=== PATIENT | male | born 1945 | race Hispanic/Latino ===

== ENCOUNTER 2018-06-06 15:15 | Inpatient (IN) | payer MEDICARE ==
[2018-06-06 15:15] VITALS: BMI 23.5
--- NOTE | 2018-06-06 15:41 | ED PDOC ---
Arrival/HPI - General Historian: Patient, Family (daughter) - History of Present Illness Narrative History of Present Illness (Text): 06/06/18 15:41 72M with a pmhx of perforated intestinal ulcer (location unclear) in the , hypothyroidism, medication non-compliance presents to the Emergency department with a month long history of weakness and fatigue. Pt says he has not taken his synthroid or seen his PMD in 2 years. He also began to get arm weakness. Pt states he wants to get better and start taking his synthroid again. ROS: Pos+ weakness, fatigue, gait instability, frequent falls, cognitive decline Neg- chest pain, shortness of breath, F/C/N/V, weight changes, blood in stools/urine, numbness, hair changes, mood changes, 06/06/18 16:10 Daughter Kat at bedside requesting to be point of contact [phone] Time/Duration: > month Symptom Course: Worsening Quality: Other (weakness) Activities at Onset: Light <Reddy Preciado - Last Filed: 06/06/18 19:21> <Tej Sen - Last Filed: 06/07/18 15:48> - General Chief Complaint: Weakness/Neurological Deficit Time Seen by Provider: 06/06/18 15:24 Past Medical History - Provider Review Nursing Documentation Reviewed: Yes - Tetanus Immunization Tetanus Immunization: Unknown - Cardiac Hx Pacemaker: No - Neurological Hx Neurological Disorder: Yes Hx Dementia: Yes (? DEMENTIA- FORGETFUL) - Renal Hx Renal Disorder: Yes Hx Kidney Stones: Yes (LITHOTRYPSY) - Endocrine/Metabolic Hx Endocrine Disorders: Yes Hx Hypothyroidism: Yes - Hematological/Oncological Hx Blood Disorders: Yes Hx Anemia: Yes - Integumentary Hx Dermatological Disorder: Yes (PLETHORA OF DRY SKIN SPECIALLY TO FEET,GENERALIZED SKIN DRYNESS TO UPPER,LE) - Musculoskeletal/Rheumatological Hx Musculoskeletal Disorders: Yes Hx Falls: Yes - Gastrointestinal Hx Gastrointestinal Disorders: Yes (DEHYDRATION,COLOSTOMY REVERSAL,FECAL IMPACTION) Hx Colostomy: Yes (with reversal) - Genitourinary/Gynecological Hx Genitourinary Disorders: Yes Hx Incontinence: Yes - Psychiatric Hx Psychophysiologic Disorder: (pt denies) Hx Anxiety: No Hx Emotional Abuse: No Hx Physical Abuse: No Hx Substance Use: No - Surgical History Hx Tonsillectomy: Yes - Anesthesia Hx Anesthesia: Yes Hx Anesthesia Reactions: No Hx Malignant Hyperthermia: No - Suicidal Assessment Feels Threatened In Home Enviroment: No <OzzyLuisReddy - Last Filed: 06/06/18 19:21> Family/Social History - Physician Review Nursing Documentation Reviewed: Yes Family/Social History: Unknown Family HX Smoking Status: Never Smoked Hx Alcohol Use: Yes (ETOH USE,BEER WHISKEY H/O) Hx Substance Use: No Hx Substance Use Treatment: No <Reddy Preciado - Last Filed: 06/06/18 19:21> Allergies/Home Meds <Reddy Preciado - Last Filed: 06/06/18 19:21> <Tej Sen - Last Filed: 06/07/18 15:48> Allergies/Adverse Reactions: Allergies No Known Allergies Allergy (Verified 10/28/14 00:01) Review of Systems - Physician Review All systems were reviewed & negative as marked: Yes - Review of Systems Constitutional: Fatigue. absent: Weight Change, Fevers Eyes: absent: Vision Changes ENT: absent: Hearing Changes Respiratory: absent: SOB, Cough Cardiovascular: absent: Chest Pain, Syncope Gastrointestinal: Constipation, Diarrhea. absent: Abdominal Pain, Vomiting Genitourinary Male: absent: Dysuria Musculoskeletal: absent: Back Pain, Neck Pain Neurological: Gait Changes (falls). absent: Headache, Dizziness Psychiatric: Other (cognitive decline) <Reddy Preciado - Last Filed: 06/06/18 19:21> Physical Exam Vital Signs Reviewed: Yes Vital Signs Pulse Resp BP Pulse Ox 06/06/18 15:16 62 18 117/77 95 Blood Pressure: Normal Pulse: Regular Respiratory Rate: Normal Appearance: Positive for: Non-Toxic Mental Status: Positive for: Alert and Oriented X 3 - Systems Exam Head: Present: Atraumatic, Normocephalic Pupils: Present: PERRL Extroacular Muscles: Present: EOMI, Other (periorbital swelling). No: Gaze Palsy Conjunctiva: Present: Normal Mouth: Present: Moist Mucous Membranes Neck: Present: Normal Range of Motion Respiratory/Chest: Present: Clear to Auscultation. No: Wheezes, Rhonchi Cardiovascular: Present: Regular Rate and Rhythm, Normal S1, S2. No: Murmurs Abdomen: No: Tenderness, Distention Upper Extremity: Present: Normal Inspection, Other (L arm weakness, muscle strength 4/5). No: Cyanosis, Edema Lower Extremity: Present: Normal Inspection, NORMAL PULSES Neurological: Present: GCS=15, CN II-XII Intact Psychiatric: Present: Alert, Oriented x 3 <Reddy Preciaod - Last Filed: 06/06/18 19:21> Vital Signs Temp Pulse Resp BP Pulse Ox 06/06/18 15:17 94.3 F L 06/06/18 15:16 62 18 117/77 95 <FrancyTej - Last Filed: 06/07/18 15:48> Medical Decision Making ED Course and Treatment: 06/06/18 17:38 CBC,CMP, T4 T3, TSH, CT head and neck no cont, Chest X-ray, Trops f/u results 06/06/18 17:39 - EKG Interpretation EKG Interpretation (Text): 06/06/18 15:41 62, RBB, no stemi <Reddy Preciado - Last Filed: 06/06/18 19:21> ED Course and Treatment: 06/06/18 19:14 Pt in NAD, GCS15 at this time. Stable neuro exam. David Rivers on. Ruslan at 57 but asymptomatic. appreciate consult w/ Dr. Mina Berg: we are to admit to his service, give 50 mcg levothyroxine. I endorsed need for Repeat CT scan in 6 hours as recc by RADS. Page sent out to Dr. Smith (NSX). 191 Appreciate consult w/ Dr. Smith, No indication for acute intervention at this time. May repeat CT as needed. 06/06/18 19:20 Patient Seen with Resident: In agreement with resident note which contains more details about the patient. Patient seen and evaluated with resident. Came up with plan and treatment together. Impression: 72 year old male who presents to the emergency department complaining of generalized weakness. Hypothryoid per labs. Mild ruslan, Hypothermic however with good mentation, stable pressures and GCS 15. Consulted w/ PMD Dr. Manuel requesting tele admit and 50mcg PO synthroid- pt agreeable. Admitted in NAD ,agreeable to plan. - Lab Interpretations Lab Results: 06/06/18 16:50 Lab Results 06/06/18 16:50: pO2 41, VBG pH 7.33, VBG pCO2 49.0, VBG HCO3 25.8, VBG Total CO2 27.3, VBG O2 Sat (Calc) 78.3 H, VBG Base Excess -0.7 L, VBG Potassium 5.1, Sodium 135.0, Chloride 100.0, Glucose 88, Lactate 1.7, FiO2 21.0, Venous Blood Potassium 5.1 06/06/18 16:50: WBC 9.1, RBC 3.73, Hgb 12.3 L, Hct 36.9 L, MCV 98.9, MCH 33.0, MCHC 33.3, RDW 13.6, Plt Count 163, MPV 10.4, Gran % 82.8 H, Lymph % (Auto) 12.4 L, [place] % (Auto) 4.3, Eos % (Auto) 0.3 L, Baso % (Auto) 0.2, Gran # 7.55 H, Lymph # (Auto) 1.1 L, [place] # (Auto) 0.4, Eos # (Auto) 0.0, Baso # (Auto) 0.02 - RAD Interpretation Radiology Orders: 06/06/18 15:44 HEAD W/O CONTRAST [CT] Stat CHEST PORTABLE [RAD] Stat 06/06/18 16:22 CERVICAL SPINE W/O CONTRAST [CT] Stat <Tej Sen - Last Filed: 06/07/18 15:48> - PA / [employer] / Resident Statement / has examined the patient and agrees with the treatment plan. (72 yr old male w/ hx of hypothyroid n/c w/ meds p/w hypothyrodisim. Elevated TSH and low T3 / T4 on labs. Presures stable, Resp normal, protecting airway well w/ GCS 15. given 50mgc synthroid po and admitted to dr. diaz service in [facility].) - Scribe Statement The provider has reviewed the documentation as recorded by the Zoraibcolette Sage Provider Scribe Attestation: All medical record entries made by the Scribe were at my direction and personally dictated by me. I have reviewed the chart and agree that the record accurately reflects my personal performance of the history, physical exam, medical decision making, and the department course for this patient. I have also personally directed, reviewed, and agree with the discharge instructions and disposition. <Tej Sen - Last Filed: 06/07/18 15:48> Disposition/Present on Arrival - Present on Arrival History of DVT/PE: No History of Uncontrolled Diabetes: No Urinary Catheter: No History of Decub. Ulcer: No History Surgical Site Infection Following: None - Disposition Have Diagnosis and Disposition been Completed?: Yes Patient Plan: Admission <Reddy Preciado - Last Filed: 06/06/18 19:21> - Present on Arrival Any Indicators Present on Arrival: No - Disposition Have Diagnosis and Disposition been Completed?: Yes Disposition Time: 19:19 <Tej Sen - Last Filed: 06/07/18 15:48> - Disposition Diagnosis: Hypothyroid Disposition: HOSPITALIZED Patient Problems: Current Active Problems Problem Status Onset Hypothyroid Acute Condition: GOOD
[2018-06-06 17:04] LABS: VENOUS BLOOD GAS BASE EXCESS -0.7 mmol/L (0.0-2.0); VENOUS BLOOD GAS PO2 41 mm/Hg (30-55); VENOUS BLOOD PH 7.33 (7.32-7.43)
[2018-06-06 17:21] LABS: BASO # 0.02 K/mm3 (0.0-2.0); BASO % 0.2 % (0.0-3.0); EOS % 0.3 % (1.5-5.0); GRAN # 7.55 (1.4-6.5); GRAN % 82.8 % (50.0-68.0); HEMOGLOBIN 12.3 g/dL (14.0-18.0); LYMPH # 1.1 (1.2-3.4); LYMPH % 12.4 % (22.0-35.0); MEAN CELL VOLUME 98.9 fl (80.0-105.0); MEAN CORPUSCULAR HGB CONC 33.3 g/dl (31.0-37.0); MEAN PLATELET VOLUME 10.4 fl (7.0-11.0); MONO # 0.4 (0.1-0.6); MONO % 4.3 % (1.0-6.0); RBC 3.73 10^6/uL (3.5-6.1); RED CELL DISTRIBUTION WIDTH 13.6 % (11.5-14.5); WHITE BLOOD COUNT 9.1 10^3/uL (4.5-11.0)
[2018-06-06 17:44] LABS: ALB/GLOB RATIO 1.2 (1.1-1.8); ALBUMIN 4.7 g/dL (3.0-4.8); CALCIUM 9.8 mg/dL (8.4-10.5)
[2018-06-06 17:55] LABS: TROPONIN I 0.02 ng/mL
[2018-06-06 18:02] LABS: T4 0.4 ug/dL (5.5-11.0)
[2018-06-06 18:15] LABS: T3 0.21 ng/mL (0.97-1.69)
[2018-06-06] MEDS ORDERED: Levothyroxine 50 MCG TAB PO STA (19:09)
--- NOTE | 2018-06-06 19:11 | CT ---
Date of service: 06/06/2018 PROCEDURE: CT HEAD WITHOUT CONTRAST. HISTORY: weak COMPARISON: Noncontrast head CT performed 10/27/14 TECHNIQUE: Axial computed tomography images were obtained through the head/brain without intravenous contrast. Radiation dose: Total exam DLP = 1149.49 mGy-cm. This CT exam was performed using one or more of the following dose reduction techniques: Automated exposure control, adjustment of the mA and/or kV according to patient size, and/or use of iterative reconstruction technique. FINDINGS: HEMORRHAGE: Question small approximately 3 mm in depth frontal convexity subdural hematoma (series 4, image 19). BRAIN: Diffuse atrophy with prominence of the ventricles and sulci noted. No mass effect or edema. Scattered periventricular and subcortical white matter hypodensities, which are nonspecific, but often seen with chronic microvascular ischemic disease. Please note that MRI with diffusion imaging is more sensitive in the detection of acute ischemic event. VENTRICLES: No hydrocephalus. CALVARIUM: Unremarkable. PARANASAL SINUSES: Increased attenuation of the left maxillary sinus contents may indicate proteinaceous material or fungal colonization. MASTOID AIR CELLS: Unremarkable as visualized. No inflammatory changes. OTHER FINDINGS: Partial opacification bilateral external auditory canals, likely cerumen. IMPRESSION: Question 3 mm small frontal convexity subdural hematoma. Recommend MRI for further evaluation or repeat head CT in 6 hr. Generalized atrophy. Nonspecific white matter changes. Increased attenuation of the left maxillary sinus contents may indicate proteinaceous material or fungal colonization. Findings discussed with Dr. Rodriguez on 06/06/18 at 7:05 p.m.
[2018-06-07] MEDS ORDERED: Sodium Chloride 0.9% 1,000 ML IV STA ×2 (05:02→06:20)
[2018-06-07 05:55] LABS: BASO # 0.03 K/mm3 (0.0-2.0); BASO % 0.5 % (0.0-3.0); EOS % 0.5 % (1.5-5.0); GRAN # 4.57 (1.4-6.5); GRAN % 71.5 % (50.0-68.0); LYMPH # 1.5 (1.2-3.4); LYMPH % 22.8 % (22.0-35.0); MEAN CELL VOLUME 98.6 fl (80.0-105.0); MEAN CORPUSCULAR HEMOGLOBIN 32.5 pg (25.0-35.0); MEAN PLATELET VOLUME 9.1 fl (7.0-11.0); MONO # 0.3 (0.1-0.6); MONO % 4.7 % (1.0-6.0); RBC 2.92 10^6/uL (3.5-6.1); RED CELL DISTRIBUTION WIDTH 13.7 % (11.5-14.5); WHITE BLOOD COUNT 6.4 10^3/uL (4.5-11.0)
[2018-06-07 06:25] LABS: PH,URINE 8.5 (4.7-8.0); URINE BILIRUBIN NEGATIVE (NEGATIVE); URINE BLOOD TRACE-INTACT (NEGATIVE); URINE GLUCOSE (UA) NEGATIVE (NEGATIVE); URINE LEUKOCYTE ESTERASE MODERATE Leu/uL (NEGATIVE); URINE PROTEIN TRACE mg/dL (<30 mg/dL); URINE UROBILINOGEN 0.2 E.U./dL (<1 E.U./dL)
[2018-06-07 06:27] LABS: HEMOGLOBIN 9.5 g/dL (14.0-18.0)
[2018-06-07 06:27] LABS: URINE APPEARANCE CLOUDY (CLEAR); URINE COLOR YELLOW (YELLOW)
[2018-06-07 06:39] LABS: URINE BACTERIA MANY /hpf; URINE EPITHELIAL CELLS 0 - 2 /hpf (0-5); URINE RBC 0 - 2 /hpf (0-2)
[2018-06-07 06:42] LABS: ALB/GLOB RATIO 1.1 (1.1-1.8); ALBUMIN 3.6 g/dL (3.0-4.8); CALCIUM 8.8 mg/dL (8.4-10.5)
--- NOTE | 2018-06-07 07:26 | CT ---
Date of service: 06/06/2018 PROCEDURE: CT Cervical Spine without contrast HISTORY: dementia, frequent falls COMPARISON: None available. TECHNIQUE: Axial computed tomography images were obtained of the cervical spine without the use of intravenous contrast. Coronal and sagittal reformatted images were created and reviewed. Radiation dose: Total exam DLP = 452.93 mGy-cm. This CT exam was performed using one or more of the following dose reduction techniques: Automated exposure control, adjustment of the mA and/or kV according to patient size, and/or use of iterative reconstruction technique. FINDINGS: VERTEBRAE: No fracture. No destructive bony lesion. There is a grade 1 5 millimeter anterior spondylolisthesis of C3 on C4 and C4 on C5 noted. DISCS/SPINAL CANAL/NEURAL FORAMINA: Moderate to severe spondylosis noted associated with multilevel facet joint arthritis and multilevel anterior and posterior osteophyte formation there is moderate narrowing of the intervertebral disc at C6-C7 associated with endplate degenerative changes and osteophyte formation. PARASPINAL SOFT TISSUES: Unremarkable. OTHER FINDINGS: None. IMPRESSION: No definite CT evidence of acute displaced fracture. Moderate to severe spondylosis. Grade 1 approximately 5 millimeter anterior spondylolisthesis of C3 on C4 and C4 on C5 noted. Multilevel posterior osteophyte bulging disc complex associated with mild spinal and neural foraminal narrowing. Preliminary report was submitted by [facility] Radiology contains concordant findings.
--- NOTE | 2018-06-07 08:23 | CP.PCM.PN ---
Subjective - Date & Time of Evaluation Date of Evaluation: 06/07/18 Time of Evaluation: 08:22 - Subjective Subjective: called by ER regarding CT report "question subdural hematoma 3mm in depth frontal area seen series 4 cut 19" As general rule small area of patiology seen on only on one CT cut of a head ct is artifact and not significant. In this case this is a nonsignificant finding No tx is required Objective - Vital Signs/Intake and Output Vital Signs (last 24 hours): Temp Pulse Resp BP Pulse Ox 96.7 F L 68 19 92/61 L 96 06/07/18 00:01 06/07/18 02:00 06/07/18 00:01 06/07/18 00:01 06/06/18 22:00 Intake and Output: 06/07/18 06/07/18 06:59 18:59 Intake Total 0 Output Total 0 Balance 0 - Medications Medications: Current Medications Acetaminophen (Tylenol 325mg Tab) 650 mg PO Q6H PRN PRN Reason: Fever >100.4 F Levothyroxine Sodium (Synthroid) 100 mcg PO ACB DELTA - Labs Labs: 06/07/18 05:20 06/07/18 05:20
[2018-06-07] MEDS: Levothyroxine 100 MCG TAB PO SCH (08:25)
--- NOTE | 2018-06-07 09:10 | CARD ---
APPROVED REPORT Date of service: 06/06/2018 EKG Measurement Heart [id number] <Conclusion> Normal sinus rhythm Right bundle branch block NSSTW changes
--- NOTE | 2018-06-07 09:37 | RAD ---
Date of service: 06/06/2018 PROCEDURE: CHEST RADIOGRAPH, 1 VIEW HISTORY: weak COMPARISON: 10/29/2014 FINDINGS: LUNGS: Minimal linear atelectasis at the left base. The lungs are otherwise clear PLEURA: No pneumothorax or pleural fluid seen. CARDIOVASCULAR: No aortic atherosclerotic calcification present. Normal. OSSEOUS STRUCTURES: No significant abnormalities. VISUALIZED UPPER ABDOMEN: Normal. OTHER FINDINGS: None. IMPRESSION: No active disease.
[2018-06-07] MEDS: Dextrose 5%/0.45% NS 1,000 ML IV SCH ×2 (11:00→23:17)
--- NOTE | 2018-06-07 11:28 | HP ---
DATE OF EXAM: 06/07/2018 CHIEF COMPLAINT: Weak, dizzy, hypothermic, hypotensive, not taking thyroid medicines for over 4 years. HISTORY OF PRESENT ILLNESS: This is frustratingly noncompliant 72-year-old patient I had known, I first met many years ago. He has a history of stopping the medications and extracting himself from all medical followup. This had been done in the past when he was seen approximately 4 years ago and apparently after taking his Synthroid only few months and being lost to followup, he again stopped taking his medications. He came to the office with family and friends, was seen by Dr. Jason Horne. His skin was cold. He was obviously profoundly hypothyroid with a deep raspy voice, dry skin, manuel hair, and sent to the emergency room. In the ER, his temp was 94.3, his blood pressure was 117/77. His TSH was over 300 and he was given some p.r.n. levothyroxine and arrangements were made for him to be admitted. PAST MEDICAL HISTORY: Significant for perforated ulcer in 1993, hypothyroidism and few hospitalizations related to noncompliance with medications and profound hypothyroidism. CURRENT MEDICATIONS: At home, he takes non oral Synthroid that has been prescribed. ALLERGIES: HE IS NOT ALLERGIC TO ANY MEDICINES. SOCIAL HISTORY: Does not smoke, never did. Does not drink alcohol. He is . FAMILY HISTORY: Otherwise noncontributory. PHYSICAL EXAMINATION: GENERAL: A 72-year-old man with deep harsh voice, white complexion, seen in the emergency room holding area, waiting for admission. HEAD AND NECK: Her skin was pale. Conjunctivae were pink. Mucous membranes were dry. NECK: Supple without masses. No JVD. No bruits. HEART: Regular, not tachycardic. LUNGS: Clear. ABDOMEN: Soft. EXTREMITIES: Show no edema. SKIN: Pale and doughy consistency. Dry with flaking. IMPRESSION: 1. Profound hypothyroidism with hypothermia and initial hypotension. 2. Noncompliance with medications. 3. History of perforated ulcer. PLAN: The patient will be admitted to the medical floor, IV hydration, thyroid supplementations, warming blanket until temperature and vitals are stabilized. IV fluids. Follow closely. Lakhwinder Horne MD [facility] # [id number]
--- NOTE | 2018-06-07 11:57 | CP.PCM.PCO ---
Physician Communication Note - Physician Communication Note Physician Communication Note: severe hypothyroidism continue synthroid as per MAR
--- NOTE | 2018-06-07 11:57 | CP.PCM.PCO ---
Physician Communication Note - Physician Communication Note Physician Communication Note: MRI brain pending, Urine culture and sensitivites pending, Rocephin initate
[2018-06-07] MEDS: cefTRIAXone 1 gm 1 GM/100 ML BAG IVPB SCH (12:38)
--- NOTE | 2018-06-07 14:05 | MRI ---
Date of service: 06/07/2018 PROCEDURE: MRI BRAIN WITHOUT CONTRAST HISTORY: f/u on questioned CT report finding COMPARISON: CT of the head 06/06/2018 TECHNIQUE: Multiplanar, multisequence MR images of the brain were obtained without intravenous contrast enhancement. FINDINGS: HEMORRHAGE: There is no evidence of subdural hematoma. There is minimal meningeal thickening in the left frontal lobe which may be the result of a previous injury. This corresponds to the CT findings DWI: No evidence of an acute or early subacute infarction. BRAIN PARENCHYMA: No mass effect or edema. Mild chronic microvascular changes. VENTRICLES: Unremarkable. No hydrocephalus. CRANIUM: Unremarkable. ORBITS: Grossly unremarkable. PARANASAL SINUSES/MASTOIDS: Clear VASCULAR SYSTEM: Skull base flow voids intact. OTHER FINDINGS: None. IMPRESSION: No acute intracranial findings
--- NOTE | 2018-06-07 16:15 | CP.PCM.CON ---
History of Present Illness - History of Present Illness History of Present Illness: 72 y/o male admitted to [facility] [place] with lethargy and hypothyroidism exacerbation. Pt has hx of noncompliance with medications and had been progressively lethargic. Otolaryngology has been asked to see the patient for hoarseness. Pt is a poor historian. He does not feel he has hoarseness or dysphagia. Pt does attest to cough. PMHX significant for perforated ulcer and hypothyroid noncompliant with meds Review of Systems - Constitutional Constitutional: As Per HPI - EENT Eyes: As Per HPI Ears: As Per HPI Nose/Mouth/Throat: As Per HPI - Cardiovascular Cardiovascular: As Per HPI - Respiratory Respiratory: As Per HPI - Gastrointestinal Gastrointestinal: As Per HPI - Genitourinary Genitourinary: As Per HPI - Reproductive: Male Reproductive:Male: As Per HPI - Musculoskeletal Musculoskeletal: As Per HPI - Integumentary Integumentary: As Per HPI - Neurological Neurological: As Per HPI - Psychiatric Psychiatric: As Per HPI - Endocrine Endocrine: As Per HPI - Hematologic/Lymphatic Hematologic: As Per HPI Past Patient History - Tetanus Immunizations Tetanus Immunization: Unknown - Past Social History Smoking Status: denies - CARDIAC Hx Pacemaker: No - NEUROLOGICAL Hx Neurological Disorder: Yes Hx Dementia: Yes (? DEMENTIA- FORGETFUL) - RENAL Hx Chronic Kidney Disease: Yes Hx Kidney Stones: Yes (LITHOTRYPSY) - ENDOCRINE/METABOLIC Hx Hypothyroidism: Yes - HEMATOLOGICAL/ONCOLOGICAL Hx Blood Disorders: Yes Hx Anemia: Yes - INTEGUMENTARY Hx Dermatological Problems: Yes (PLETHORA OF DRY SKIN SPECIALLY TO FEET,GENERALIZED SKIN DRYNESS TO UPPER,LE) - MUSCULOSKELETAL/RHEUMATOLOGICAL Hx Falls: Yes (due to weakness) - GASTROINTESTINAL Hx Gastrointestinal Disorders: Yes (DEHYDRATION,COLOSTOMY REVERSAL,FECAL IMPACTION) Hx Colostomy: Yes (with reversal) - GENITOURINARY/GYNECOLOGICAL Hx Genitourinary Disorders: Yes Hx Incontinence: Yes - PSYCHIATRIC Hx Psychophysiologic Disorder: (pt denies) Hx Anxiety: No Hx Emotional Abuse: No Hx Physical Abuse: No - SURGICAL HISTORY Hx Surgeries: Yes (HEMICOLECTOMY,COLOSTOMY 06/30) - ANESTHESIA Hx Anesthesia: Yes Hx Anesthesia Reactions: No Hx Malignant Hyperthermia: No Meds Allergies/Adverse Reactions: Allergies Allergy/AdvReac Type Severity Reaction Status Date / Time No Known Allergies Allergy Verified 10/28/14 00:01 - Medications Medications: Current Medications Acetaminophen (Tylenol 325mg Tab) 650 mg PO Q6H PRN PRN Reason: Fever >100.4 F Dextrose/Sodium Chloride (Dextrose 5%/0.45% Ns 1000 Ml) 1,000 mls @ 100 mls/hr IV .Q10H DELTA Last Admin: 06/07/18 11:00 Dose: 100 mls/hr Ceftriaxone Sodium (Rocephin 1 Gram Ivpb) 1 gm in 100 mls @ 100 mls/hr IVPB DAILY DELTA; Protocol Last Admin: 06/07/18 12:38 Dose: 100 mls/hr Levothyroxine Sodium (Synthroid) 100 mcg PO ACB DELTA Last Admin: 06/07/18 08:25 Dose: 100 mcg Physical Exam - Head Exam Head Exam: ATRAUMATIC, NORMAL INSPECTION, NORMOCEPHALIC - Eye Exam Eye Exam: EOMI Pupil Exam: NORMAL ACCOMODATION - ENT Exam ENT Exam: Mucous Membranes Moist Additional comments: Ears: cerumen bilaterally Nose: wnl clear non boggy Throat: MMM no lesions or erythema Neck supple no adenopathy Procedure: Fiberoptic laryngoscopy performed. Anatomy not visualized with mirror therefore fiberoptic exam indicated. afrin/lidocaine placed rt nares. Scope advanced through nose to supraglottis. No lesions or masses noted in larynx. Vocal cord motion wnl bilaterally. mild interarytenoid edema. pt tolerated the procedure well. - Neck Exam Neck exam: Positive for: Normal Inspection - Respiratory Exam Respiratory Exam: Rhonchi Results - Vital Signs Recent Vital Signs: Last Vital Signs Temp 97.7 F 06/07/18 11:51 Pulse 63 06/07/18 11:51 Resp 18 06/07/18 11:51 BP 123/74 06/07/18 11:51 Pulse Ox 97 06/07/18 08:00 - Labs Result Diagrams: 06/07/18 05:20 06/07/18 05:20 Labs: Laboratory Results - last 24 hr 06/06/18 06/06/18 06/06/18 16:50 16:50 17:28 WBC 9.1 RBC 3.73 Hgb 12.3 L Hct 36.9 L MCV 98.9 MCH 33.0 MCHC 33.3 RDW 13.6 Plt Count 163 MPV 10.4 Gran % 82.8 H Lymph % (Auto) 12.4 L [place] % (Auto) 4.3 Eos % (Auto) 0.3 L Baso % (Auto) 0.2 Gran # 7.55 H Lymph # (Auto) 1.1 L [place] # (Auto) 0.4 Eos # (Auto) 0.0 Baso # (Auto) 0.02 pO2 41 VBG pH 7.33 VBG pCO2 49.0 VBG HCO3 25.8 VBG Total CO2 27.3 VBG O2 Sat (Calc) 78.3 H VBG Base Excess -0.7 L VBG Potassium 5.1 Sodium 135.0 135 Chloride 100.0 100 Glucose 88 Lactate 1.7 FiO2 21.0 Potassium 4.0 Carbon Dioxide 24 Anion Gap 15 BUN 33 H Creatinine 1.9 H Est GFR ( Amer) 43 Est GFR (Non-Af Amer) 35 Random Glucose 93 Lactic Acid Calcium 9.8 Total Bilirubin 0.6 AST 81 H ALT 58 H Alkaline Phosphatase 68 Troponin I 0.02 D Total Protein 8.6 H Albumin 4.7 Globulin 3.9 Albumin/Globulin Ratio 1.2 Thyroxine (T4) Total T3 TSH 3rd Generation Venous Blood Potassium 5.1 Urine Color Urine Appearance Urine pH Ur Specific [place] Urine Protein Urine Glucose (UA) Urine Ketones Urine Blood Urine Nitrate Urine Bilirubin Urine Urobilinogen Ur Leukocyte Esterase Urine RBC Urine WBC Ur Epithelial Cells Urine Bacteria Blood Type Antibody Screen BBK History Checked 06/06/18 06/06/18 06/07/18 17:28 17:30 05:20 WBC 6.4 D RBC 2.92 L Hgb 9.5 L D Hct 28.8 L MCV 98.6 MCH 32.5 MCHC 33.0 RDW 13.7 Plt Count 147 MPV 9.1 Gran % 71.5 H Lymph % (Auto) 22.8 [place] % (Auto) 4.7 Eos % (Auto) 0.5 L Baso % (Auto) 0.5 Gran # 4.57 Lymph # (Auto) 1.5 [place] # (Auto) 0.3 Eos # (Auto) 0.0 Baso # (Auto) 0.03 pO2 VBG pH VBG pCO2 VBG HCO3 VBG Total CO2 VBG O2 Sat (Calc) VBG Base Excess VBG Potassium Sodium Chloride Glucose Lactate FiO2 Potassium Carbon Dioxide Anion Gap BUN Creatinine Est GFR ( Amer) Est GFR (Non-Af Amer) Random Glucose Lactic Acid Calcium Total Bilirubin AST ALT Alkaline Phosphatase Troponin I Total Protein Albumin Globulin Albumin/Globulin Ratio Thyroxine (T4) 0.4 L Total T3 0.21 L TSH 3rd Generation 384.00 H Venous Blood Potassium Urine Color Urine Appearance Urine pH Ur Specific [place] Urine Protein Urine Glucose (UA) Urine Ketones Urine Blood Urine Nitrate Urine Bilirubin Urine Urobilinogen Ur Leukocyte Esterase Urine RBC Urine WBC Ur Epithelial Cells Urine Bacteria Blood Type B POSITIVE Antibody Screen Negative BBK History Checked Patient has bt 06/07/18 06/07/18 06/07/18 05:20 05:20 05:50 WBC RBC Hgb Hct MCV MCH MCHC RDW Plt Count MPV Gran % Lymph % (Auto) [place] % (Auto) Eos % (Auto) Baso % (Auto) Gran # Lymph # (Auto) [place] # (Auto) Eos # (Auto) Baso # (Auto) pO2 VBG pH VBG pCO2 VBG HCO3 VBG Total CO2 VBG O2 Sat (Calc) VBG Base Excess VBG Potassium Sodium 136 Chloride 104 Glucose Lactate FiO2 Potassium 3.9 Carbon Dioxide 22 Anion Gap 13 BUN 34 H Creatinine 2.5 H Est GFR ( Amer) 31 Est GFR (Non-Af Amer) 26 Random Glucose 77 Lactic Acid 1.3 Calcium 8.8 Total Bilirubin 0.6 AST 55 ALT 39 Alkaline Phosphatase 51 Troponin I Total Protein 6.7 Albumin 3.6 Globulin 3.1 Albumin/Globulin Ratio 1.1 Thyroxine (T4) Total T3 TSH 3rd Generation Venous Blood Potassium Urine Color Yellow Urine Appearance Cloudy Urine pH 8.5 Ur Specific [place] 1.010 Urine Protein Trace H Urine Glucose (UA) Negative Urine Ketones Negative Urine Blood Trace-intact H Urine Nitrate Negative Urine Bilirubin Negative Urine Urobilinogen 0.2 Ur Leukocyte Esterase Moderate H Urine RBC 0 - 2 Urine WBC 5 - 10 H Ur Epithelial Cells 0 - 2 Urine Bacteria Many Blood Type Antibody Screen BBK History Checked - Impressions Impression: Atelectasis noted on cxr Assessment & Plan (1) Hypothyroid Status: Acute (2) Dehydration Status: Acute (3) Hypokalemia Status: Acute (4) Renal insufficiency Status: Acute (5) Urinary tract infection Status: Acute (6) Oropharyngeal dysphagia Status: Acute (7) Other voice and resonance disorders Status: Acute (8) Cough Status: Acute - Assessment and Plan (Free Text) Plan: I believe the patient's problems with voice are multifactorial (hypothyroid, cough-r/o Lower respiratory tract infection/bronchitis, poor respiratory effort, debility and GERD). Continue Abx for UTI and possibility of lower respiratory tract infection/bronchitis. Speech therapy eval-bedside swallow. Follow up as out patient. - Date & Time Date: 06/07/18 Time: 16:14
--- NOTE | 2018-06-08 00:33 | PN ---
DATE: 06/07/2018 DAILY PROGRESS NOTE SUBJECTIVE: The patient was seen this Sunday morning in room 264, bed 1, lying comfortably in bed, awake, alert, and clear in rather good spirits. PHYSICAL EXAMINATION: VITAL SIGNS: Heart rate remains stable in the low 60s, his temperature madi during the night. He was given a dose of Tylenol. LABORATORY DATA: Urinalysis shows some cloudy urine, suspicious of urinary tract infection. Cultures are pending. ASSESSMENT AND PLAN: The dose of antibiotics were ordered and given. Synthroid is ordered. I also ordered for some physical therapy, currently up and out of bed. Neurosurgical opinion was appreciated regarding findings of CT scan on admission to be more artifactual . I reviewed the films myself with Dr. Lawson in the Radiology office. The patient is scheduled for an MRI. I will continue that request since he is complaining of left arm weakness. He says he feels the arm is weak yet when I test strength and respiratory care assistant and biceps and triceps as well as shoulder shrugging, all seems normal. We will look at the MRI to rule out transient ischemic attack, cerebrovascular accident or other abnormality. Otherwise, we will continue IV hydration today, continue Synthroid, consider Transitional Care for additional physical therapy versus home with reinforcement of the importance of taking his medications. Lakhwinder Horne MD
[2018-06-08] MEDS: Levothyroxine 100 MCG TAB PO SCH (08:12)
[2018-06-08 09:08] LABS: ALB/GLOB RATIO 1.1 (1.1-1.8); ALBUMIN 3.7 g/dL (3.0-4.8); BASO # 0.01 K/mm3 (0.0-2.0); BASO % 0.1 % (0.0-3.0); CALCIUM 8.9 mg/dL (8.4-10.5); EOS % 0.4 % (1.5-5.0); GRAN # 7.45 (1.4-6.5); GRAN % 78.2 % (50.0-68.0); HEMOGLOBIN 10.7 g/dL (14.0-18.0); LYMPH # 1.7 (1.2-3.4); LYMPH % 17.8 % (22.0-35.0); MEAN CELL VOLUME 99.4 fl (80.0-105.0); MEAN CORPUSCULAR HEMOGLOBIN 32.6 pg (25.0-35.0); MEAN CORPUSCULAR HGB CONC 32.8 g/dl (31.0-37.0); MEAN PLATELET VOLUME 9.5 fl (7.0-11.0); MONO # 0.3 (0.1-0.6); MONO % 3.5 % (1.0-6.0); RBC 3.28 10^6/uL (3.5-6.1); RED CELL DISTRIBUTION WIDTH 13.8 % (11.5-14.5); WHITE BLOOD COUNT 9.5 10^3/uL (4.5-11.0)
[2018-06-08 09:13] LABS: IRON 32 ug/dL (45-180)
[2018-06-08 09:23] LABS: % IRON SATURATION 11 % (20-55); TOTAL IRON BINDING CAPACITY 305 ug/dL (261-462)
[2018-06-08] MEDS: Dextrose 5%/0.45% NS 1,000 ML IV SCH ×2 (09:50→20:00)
[2018-06-08] MEDS: cefTRIAXone 1 gm 1 GM/100 ML BAG IVPB SCH (09:51)
[2018-06-08 12:15] LABS: FOLATE 3.6 ng/mL
--- NOTE | 2018-06-08 14:47 | CP.PCM.PCO ---
Physician Communication Note - Physician Communication Note Physician Communication Note: PT recommended TCU, CM/SW for D/C planning
[2018-06-08] MEDS ORDERED: Potassium Chloride 20 mEq ER Tab PO ONE (14:49)
[2018-06-09] MEDS: Dextrose 5%/0.45% NS 1,000 ML IV SCH ×3 (04:00→21:30)
[2018-06-09 06:51] LABS: ALB/GLOB RATIO 1.1 (1.1-1.8); ALBUMIN 3.4 g/dL (3.0-4.8); BASO # 0.01 K/mm3 (0.0-2.0); BASO % 0.2 % (0.0-3.0); CALCIUM 8.2 mg/dL (8.4-10.5); EOS # 0.1 (0.0-0.7); EOS % 1.3 % (1.5-5.0); GRAN # 4.41 (1.4-6.5); GRAN % 72.2 % (50.0-68.0); HEMOGLOBIN 9.1 g/dL (14.0-18.0); LYMPH # 1.3 (1.2-3.4); LYMPH % 21.5 % (22.0-35.0); MEAN CELL VOLUME 99.6 fl (80.0-105.0); MEAN CORPUSCULAR HEMOGLOBIN 32.7 pg (25.0-35.0); MEAN CORPUSCULAR HGB CONC 32.9 g/dl (31.0-37.0); MEAN PLATELET VOLUME 9.2 fl (7.0-11.0); MONO # 0.3 (0.1-0.6); MONO % 4.8 % (1.0-6.0); RBC 2.78 10^6/uL (3.5-6.1); RED CELL DISTRIBUTION WIDTH 13.6 % (11.5-14.5); WHITE BLOOD COUNT 6.1 10^3/uL (4.5-11.0)
[2018-06-09] MEDS: Levothyroxine 100 MCG TAB PO SCH (08:42)
[2018-06-09] MEDS: cefTRIAXone 1 gm 1 GM/100 ML BAG IVPB SCH (09:06)
[2018-06-09] MEDS ORDERED: Levothyroxine 150 MCG TAB PO SCH (11:31)
--- NOTE | 2018-06-09 17:04 | PN ---
DATE: 06/08/2018 SUBJECTIVE: The patient is a 72-year-old male whom I have known for several years who has been extremely noncompliant with his medications who presented to the office for evaluation with weakness and inability to walk. I suggested hospitalization. Therefore, he presented was evaluated and admitted. As in the past, he is severely hypothyroid with a thyroid stimulating hormone markedly elevated at 384. When seen today, the patient has been started on Synthroid 100 mcg daily. When seen today, he also complains of weakness in his left upper extremity. He cannot raise his left arm. It is movable and painless on passive motion. However, her the patient has no strength to lift his left upper extremity. Workup today has showed his EKG is in regular sinus rhythm with a right bundle-branch block. There was a small frontal subdural hematoma on CAT scan, which proved to be meningeal thickening secondary to injury in the past on MRI. CAT scan of the neck showed spondylosis of the cervical spine. Today's laboratory studies showed white cell count to be 6.4, hemoglobin and hematocrit are 9.5 and 28.8, blood urea nitrogen is 34 and creatinine is 2.5. The creatinine was 1.9 on admission. His blood pressure is 112/67, heart rate is 60. When seen, the patient is lying in bed. He is awake, alert and oriented. He is pleasant, however, simply cannot explain his condition nor his noncompliance with medications. I feel there may be an underlying component of depression, therefore, the patient is to be started on Zoloft and we will continue to follow the patient closely. Dagoberto Horne MD [facility]
--- NOTE | 2018-06-09 17:16 | PN ---
DATE: 06/09/2018 SUBJECTIVE: The patient is a 72-year-old male with a long history of noncompliance with medication who was admitted on 06/06/2018 with severe bradycardia and hypothyroidism. To date, workup has shown only spondylosis of the cervical spine. There is a small area of meningeal thickening secondary to trauma on MRI of his head. The hemoglobin and hematocrit are 9.1 and 27.7 respectively. The patient is receiving iron supplements. Vital signs are stable at 110/68 and heart rate of 65 beats per minute. Urinalysis showed he has less than 100,000 colonies of gram-negative rods in his urine. We are treating the patient with 100 mcg of Levoxyl daily. We are also giving him ferrous sulfate 324 mg twice a day as well as Zoloft 50 mg daily. I will be discontinuing his ceftriaxone as the patient does not have any signs of infection nor does he seemed to be septic at this time. We are encouraging physical therapy. I will be ordering an MRI of the left shoulder in an attempt to find a reason why his left upper extremity is flaccid. I will ask Neurology to evaluate. Dagoberto Horne MD
[2018-06-10 02:06] VITALS: O2SAT 91
[2018-06-10] MEDS: Dextrose 5%/0.45% NS 1,000 ML IV SCH (08:39)
--- NOTE | 2018-06-10 13:31 | RAD ---
Date of service: 06/10/2018 HISTORY: abnormal lung sounds COMPARISON: 06/06/2018 FINDINGS: LUNGS: Patchy infiltrates in the right lung PLEURA: No significant pleural effusion identified, no pneumothorax apparent. CARDIOVASCULAR: No aortic atherosclerotic calcification present. Normal cardiac size. No pulmonary vascular congestion. OSSEOUS STRUCTURES: No significant abnormalities. VISUALIZED UPPER ABDOMEN: Normal. OTHER FINDINGS: None. IMPRESSION: Patchy infiltrates in the right lung
--- NOTE | 2018-06-10 14:10 | MRI ---
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 Partial articular surface/intrasubstance tear of the infraspinatus tendon with partial tendon retraction. Edema in the rotator cuff musculature. Accompanying subacromial/subdeltoid bursitis. Elevation of the humeral head facet with chronic rotator cuff arthropathy. Moderate acromioclavicular osteoarthritis with narrowing of subacromial space. Degenerative changes of the glenohumeral joint with labral wear as well as capsular thickening. Inferior marginal spur formation. Glenohumeral joint effusion with subcoracoid bursitis. Biceps tendon intact within its groove. 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 Partial articular surface/intrasubstance tear of the infraspinatus tendon with partial tendon retraction. Edema in the rotator cuff musculature. Accompanying subacromial/subdeltoid bursitis. Degenerative changes of the glenohumeral joint.
--- NOTE | 2018-06-10 14:35 | CON ---
DATE: 06/10/2018 NEUROLOGY CONSULT CHIEF COMPLAINT: Left arm weakness. HISTORY OF PRESENT ILLNESS: This is a 72-year-old man with past medical history of hypothyroidism, previously hospitalized with noncompliance to medications in the past, profound hypothyroidism, who came for generalized weakness in the past few days in his very deconditioned state at home on his bed and has very limited movement, uses a walker occasionally. His TSH was over 300 and was given some p.r.n. levothyroxine and arrangements were made for him to be admitted. 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 His cervical CT spine showed severe spondylosis at C3/C4 and C4/C5 but mild neural foraminal narrowing. He has atrophic muscles in his arms as well as his upper shoulders, left worse than right, likely he leads prolonged on his left side and has become severely deconditioned. His MRI of the brain showed no evidence of any infarct. He will need subacute rehab placement for reconditioning and strengthening his upper extremities as well as lower extremities imbalance. PAST MEDICAL HISTORY: As above. FAMILY HISTORY: Noncontributory. SOCIAL HISTORY: No illicit drug use, smoking or EtOH abuse. REVIEW OF SYSTEMS: Fourteen-point review of systems is as per HPI. MEDICATIONS: Reviewed by nurse's reconciliation sheet. PHYSICAL EXAMINATION GENERAL: The patient is sitting up in bed, in no acute distress, deconditioned, emaciated. VITAL SIGNS: Temperature is afebrile, pulse rate is 64, blood pressure 121/93, oxygen saturation 90% on room air. HEENT: Atraumatic, normocephalic. PERRLA. Extraocular muscles intact. NECK: Supple. No JVD. No adenopathy noted. LUNGS: Clear to auscultation. No adventitious sounds. HEART: S1 and S2. Normal rate and rhythm. No murmurs, rubs or gallops. ABDOMEN: Soft, nontender, nondistended. Bowel sounds present. EXTREMITIES: No clubbing, no cyanosis. Peripheral pulses are 2+ felt bilaterally. NEUROLOGIC: The patient is alert and oriented to person, place, month and year. Speech is fluent without any errors. Cranial nerves II through XII are intact. Motor exam: Moves all extremities equally. Toes downgoing bilaterally. Sensory: Light touch, pinprick, proprioception and vibration are intact. DTRs are 2+ throughout and 1 at both knees and ankles. Coordination: Ufyrmo-dr-pdez intact. No dysmetria noted. MUSCULOSKELETAL: Difficulty lifting up his left shoulder compared to his right, though he is equally symmetrically weak left worse than right in terms of the shoulder muscles. Deep tendon reflexes are 2+ throughout and 1 at both knees and ankles. LABORATORY DATA: Sodium is 134, potassium 3.8, chloride 106, carbon dioxide 23, BUN of 22, creatinine of 1.7, random glucose of 82. IMPRESSION: 1. Profound hypothyroidism with hypothermia with initial hypertension, now stable. 2. Severe deconditioned state. 3. Left arm weakness, it is most likely localized to emaciation of left shoulder from prolonged immobilization when compared to the right. MRI of the shoulder is pending. He has underlying cervical spondylosis as well. PLAN: Recommend subacute rehab for reconditioning muscle strengthening and will need adequate nutrition throughout the day. Thank you for this consult. Lenin Lopez MD
[2018-06-10 17:32] VITALS: BP 147/88; PULSE 62; RESP 19; TEMP 98.1
== END 2018-06-10 19:20 | DRG 644 ==
LOC: ED 15:15 → ERH 19:09 → 2RNO 22:04
PROVIDERS: ADMIT Internal Medicine; ATTEND Internal Medicine
DX: E03.9 Hypothyroidism, unspecified (principal); N39.0 Urinary tract infection, site not specified; M47.812 Spondylosis without myelopathy or radiculopathy, cervical region; E86.0 Dehydration; R13.12 Dysphagia, oropharyngeal phase; E87.6 Hypokalemia; F03.90 Unspecified dementia, unspecified severity, without behavioral disturbance, psychotic disturbance, mood disturbance, and anxiety; I12.9 Hypertensive chronic kidney disease with stage 1 through stage 4 chronic kidney disease, or unspecified chronic kidney disease; N18.9 Chronic kidney disease, unspecified; I45.10 Unspecified right bundle-branch block; R68.0 Hypothermia, not associated with low environmental temperature; I95.9 Hypotension, unspecified; R00.1 Bradycardia, unspecified; Z91.14 Patient's other noncompliance with medication regimen

== ENCOUNTER 2018-06-10 19:22 | Inpatient (IN) | payer MEDICARE ==
[2018-06-11] MEDS: Levothyroxine 150 MCG TAB PO SCH (05:09)
[2018-06-12] MEDS: Levothyroxine 150 MCG TAB PO SCH (05:10)
[2018-06-13] MEDS: Levothyroxine 150 MCG TAB PO SCH (05:42)
--- NOTE | 2018-06-13 08:23 | CON ---
DATE: 06/12/2018 NEUROLOGY CONSULTATION CHIEF COMPLAINT: Left shoulder weakness. HISTORY OF PRESENT ILLNESS: This is a 72-year-old man with past medical history of hypothyroidism, previously hospitalized with noncompliance to medications with profound hypothyroidism, who came in for generalized weakness in the past few days, deconditioned on the medical site and with very limited use of movement of his left upper arm. His TSH on the medical site was over 300 and was given some p.r.n. levothyroxine and was stabilized. I was called for a left arm and shoulder weakness. His cervical spine CAT scan shows severe spondylosis at C3-C4 and C4-C5 with mild neural foraminal narrowing. He also has atrophy of the muscles in terms of his arms as well as his upper shoulders, left worse than right, and also has been sleeping on his left side for prolonged state and is severely deconditioned. His MRI of the brain showed no acute intracranial abnormalities and TRC for rehabilitation. His MRI of the shoulder on 06/09/2018 showed chronic full-thickness tear of the supraspinatus tendon and distal insertion along the anterior leading edge with partial articular surface with intrasubstance tear of the infraspinatus tendon with partial tendon retraction and edema of the rotator cuff musculature with underlying subacromial subdeltoid bursitis with underlying degenerative changes for which he should have an orthopedic evaluation. PAST MEDICAL HISTORY: As above. FAMILY HISTORY: Noncontributory. SOCIAL HISTORY: No illicit drug use, smoking or EtOH abuse. REVIEW OF SYSTEMS: Fourteen-point review of systems is as per HPI. MEDICATIONS: Reviewed by nurse's reconciliation sheet. LABORATORY DATA: No new labs done today. PHYSICAL EXAMINATION: GENERAL: The patient is sitting up in bed, in no acute distress. VITAL SIGNS: Temperature 98.7, pulse rate 58, blood pressure 124/60, respiratory rate 18 and oxygen saturation 93% on room air. HEENT: Atraumatic and normocephalic. PERRLA. Extraocular muscles intact. NECK: Supple. No JVD. No adenopathy noted. LUNGS: Clear to auscultation. No adventitious sounds. HEART: S1 and S2. Normal rate and rhythm. No murmurs, rubs or gallops. ABDOMEN: Soft, nontender, and nondistended. Bowel sounds are present. EXTREMITIES: No clubbing. No cyanosis. Peripheral pulses 2+ felt bilaterally. NEUROLOGIC: The patient is alert and oriented to person, place, month, and year. Speech is fluent without any errors. Cranial nerves II through XII were intact. Motor exam: Moves all extremities equally. Toes are downgoing bilaterally. He has atrophy of the intrinsic muscles and extrinsic muscles of his extremities. He has marked atrophy of the left deltoid. DTR is 2+throughout and 1 in both knees and ankles. Sensory: Light touch, pinprick, proprioception, and vibration are intact. DTRs are 2+ throughout. Musculoskeletal: He has difficulty lifting up his left shoulder compared to his right and has symmetric weakness and actually of the right shoulder muscles. IMPRESSION: 1. Profound hypothyroidism with hypothermia with initial hypertension, now stable. 2. Severe deconditioned state. 3. 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 Partial articular surface/intrasubstance tear of the infraspinatus tendon with partial tendon retraction and rotator cuff musculature and subacromial subdeltoid bursitis with degenerative changes and has underlying cervical spondylosis. At this time, we recommend subacute rehab for reconditioning and muscle strengthening and will need adequate nutrition throughout the day and prevent prolonged immobilization. Thanks for this consult. Lenin Lopez MD
[2018-06-14] MEDS: Levothyroxine 150 MCG TAB PO SCH (05:57)
[2018-06-14 06:43] LABS: HEMOGLOBIN 8.9 g/dL (14.0-18.0); MEAN CELL VOLUME 100.7 fl (80.0-105.0); MEAN CORPUSCULAR HEMOGLOBIN 32.6 pg (25.0-35.0); MEAN CORPUSCULAR HGB CONC 32.4 g/dl (31.0-37.0); MEAN PLATELET VOLUME 8.4 fl (7.0-11.0); RBC 2.73 10^6/uL (3.5-6.1); RED CELL DISTRIBUTION WIDTH 13.6 % (11.5-14.5); WHITE BLOOD COUNT 5.5 10^3/uL (4.5-11.0)
[2018-06-14 07:22] LABS: ALB/GLOB RATIO 1.2 (1.1-1.8); ALBUMIN 3.9 g/dL (3.0-4.8); CALCIUM 9.3 mg/dL (8.4-10.5)
[2018-06-14 08:41] LABS: FREE T4 0.36 ng/dL (0.78-2.19)
[2018-06-15] MEDS: Levothyroxine 150 MCG TAB PO SCH (05:55)
--- NOTE | 2018-06-15 13:32 | PN ---
DATE: 06/13/2018 SUBJECTIVE: The patient is a 72-year-old male, who presented to the emergency room on 06/06/2018 with weakness, was found to be bradycardic, severely hypothyroid secondary to noncompliance with his medications, which has been a problem with this patient over the years. After 4 days, arrangements were made for him to be transferred to the transitional care unit for physical therapy. At this point, he is receiving Synthroid 150 mg daily as well as Zoloft 100 mg daily. When seen, the patient voices no complaints. He is feeling well. He seems to be accepting physical therapy. We are continuing to follow the patient closely. Dagoberto Horne MD
--- NOTE | 2018-06-15 14:32 | PN ---
DATE: 06/15/2018 DAILY PROGRESS NOTE SUBJECTIVE: The patient was seen this Sunday morning in room 303, bed 1 over the transitional care unit. He is awake and alert and clear doing well, but sitting in the dark room this late Sunday morning when I arrived. I explained to him the importance of opening the blinds, opening the window shadess, becoming more aware of sense of day and night, and more active in his lifestyle. He continues on thyroid supplements and is doing rather well. His voice has noticeably changed since I saw him prior to my week away from the hospital. We will need to work a little bit more on physical therapy, as today is day 5 of his 8-day stay in TCU. We will continue PT, continue medications. I do not expect his TSH to return to normal for several months, and due to the severity of his presentation, we will continue Synthroid at the current level, although this may be a bit high from his baseline requirements. Lakhwinder Horne MD [facility]
--- NOTE | 2018-06-15 16:36 | PN ---
DATE: 06/12/2018 SUBJECTIVE: The patient is a 72-year-old male who was admitted to the [facility] on 06/06/2018 with severe hypothyroidism. The patient has been noncompliant with his medication, has not taken any Synthroid over the past several years. He was seen in the office visit very weak, pale, cool to touch. He was sent to the emergency room at [facility] and was admitted on 06/06/2018. He was started on Synthroid and Zoloft, and to be transferred to the transitional care unit on 06/12/2018. Here in the transitional care unit, the patient is undergoing physical therapy. He is continuing the medications as mentioned above. He voices no complaints. We are urging physical therapy and compliance with medications. The patient will be reevaluated in the morning. Dagoberto Horne MD
--- NOTE | 2018-06-15 16:46 | PN ---
DATE: 06/14/2018 SUBJECTIVE: The patient is a 72-year-old male who was admitted to [facility] on 06/06/2018 with severe hypothyroidism secondary to noncompliance with his medication. During his hospital stay, the patient was started on Synthroid as well as an antidepressant Zoloft and arrangements were made for him to be transferred to the transitional care unit for physical therapy. The transfer took place on 06/10/2018. When seen today, the patient is awake, alert and oriented. He voices no complaints. He is eating well. Bowel and urinary habits are normal. We are continuing with Synthroid 150 mcg p.o. daily and Zoloft 100 mg daily. We are continuing to follow the patient closely and encourage physical therapy along with medication compliance. Dagoberto Horne MD
--- NOTE | 2018-06-15 19:25 | HP ---
DATE OF EXAM: 06/15/2018 This is his admitting history and physical to the Transitional Care Unit at [facility], and I would like it to be read as follows if you would be so kind. HISTORY OF PRESENT ILLNESS: The patient is a 72-year-old male, who presented to the emergency room on the 06/06/2018 with generalized weakness. The patient could barely walk. The patient has been known to have a history of noncompliance with his medications, especially with his Synthroid. The patient was last seen about 2 or 3 years ago and he probably has not been taking his Synthroid since then. His TSH was found to be elevated at the 300s. He was started on Synthroid, been gradually increased to 150 mcg daily. As the patient did well on the medical floor, arrangements for him to be made to transfer to the Transitional Care Unit for physical therapy and ambulatory strength. Of note also is that the patient was unable to elevate his left upper extremity; his handgrips were equal. He was evaluated by Dr. Lenin Lopez on the floor and I spoke to Dr. Phelps about this. He felt that simply because of inactivity, the patient's shoulder muscles and upper back muscles, scapula were all atrophied and the patient simply needed physical therapy. So, the patient admitted to the Transitional Care Unit. He is continuing on his Synthroid. SOCIAL HISTORY: He is a nonsmoker, non-alcohol drinker. ALLERGIES: HE HAS NO KNOWN MEDICAL ALLERGIES. PLAN: We are giving him Feosol 324 mg twice a day. I suspect the patient to be quite depressed and that he basically could find himself to his bed at home and he is therefore started on Zoloft 100 mg daily. We will continue to follow the patient closely, encourage physical therapy and encourage compliance with his medications. Dagoberto Horne MD MTDD
[2018-06-16] MEDS: Levothyroxine 150 MCG TAB PO SCH (05:18)
--- NOTE | 2018-06-16 20:04 | PN ---
DATE: 06/16/2018 SUBJECTIVE: The patient was seen this Sunday morning in the Transitional Care Unit in room 303. Resting in bed. Again I opened the blinds and I put some light into the room, explained to the patient the importance of getting up and out of bed and ambulating a little bit more. He is doing so with the physical therapist and with therapy, but prefers to stay in bed as he does at home. PHYSICAL EXAMINATION: Remains essentially unremarkable. ASSESSMENT AND PLAN: He is improving from his signs of severe hypothyroidism. Today is day #6 of his #8 day stay on TCU. We will encourage and continue PT and follow closely. Lakhwinder Horne MD
[2018-06-17] MEDS: Levothyroxine 150 MCG TAB PO SCH (05:20)
[2018-06-17 10:28] VITALS: RESP 18
[2018-06-18] MEDS: Levothyroxine 150 MCG TAB PO SCH (05:42)
--- NOTE | 2018-06-18 09:47 | PN ---
DATE: 06/17/2018 SUBJECTIVE: Yoan remains in TCU, continuing his hypothyroid medicine treatment and aggressive physical therapy. Today is day 7 of his 8 day stay. Again, he is encouraged to continuing physical therapy, exercise, ambulate and increase his activity level. Lakhwinder Horne MD
--- NOTE | 2018-06-18 12:42 | RAD ---
Date of service: 06/18/2018 HISTORY: cough, O2 de-sat COMPARISON: Chest radiograph dated 06/10/2018. TECHNIQUE: Chest PA and lateral FINDINGS: LUNGS: Similar appearance of right lung patchy infiltrates. Left midlung platelike atelectasis/scarring. PLEURA: No significant pleural effusion identified. No pneumothorax apparent. CARDIOVASCULAR: Aortic atherosclerotic calcifications. Cardiomediastinal silhouette stably prominent. OSSEOUS STRUCTURES: Unchanged. VISUALIZED UPPER ABDOMEN: Normal. OTHER FINDINGS: None. IMPRESSION: Similar appearance of right lung patchy infiltrates.
[2018-06-18 16:43] VITALS: TEMP 98.9
[2018-06-18] MEDS ORDERED: cefTRIAXone 1 gm 1 GM/100 ML BAG IV SCH ×2 (21:00→22:00)
--- NOTE | 2018-06-19 00:08 | PN ---
DATE: 06/18/2018 DAILY PROGRESS NOTE SUBJECTIVE: The patient is seen on this Sunday morning in room 303, bed 2. He is resting comfortably in bed, in no acute distress. Again, I encouraged him to open the curtains, let some light into the room, get out of bed, sit in the chair, and become more active. He understands as he hears this from me almost daily and promises to try his best. Today is day eight of his hospital stay, and he is scheduled for discharge to home tomorrow. After talking with the patient for some time, he noted wet, thick, nonproductive cough. PHYSICAL EXAMINATION: LUNGS: Clear except for that up of phlegmy cough. Review of the record shows low-grade temp of 99 yesterday evening and this morning. ASSESSMENT AND PLAN: We will order a complete blood count and basic metabolic panel for tomorrow and get a chest x-ray for later today. I will ask Dr. García to see the patient as well in pulmonary consultation. Also that the nurses report, the patient is desaturating into the 89 to 90 range during physical therapy and ambulation and may benefit from home oxygen. This comes a bit of a surprise to me as he has never had problems with chronic obstructive pulmonary disease or hypoxia in the past. We will look at the complete blood count and chest x-ray based on his wet cough and follow. ADDENDUM: Later in the day, I received call from the nurse. Chest x-ray shows infiltrate on the right side. We will add Rocephin and reassess the situation in the morning perhaps we may need to discharge him on home p.o. antibiotics such as Levaquin 500 mg daily. Lakhwinder Horne MD [facility]
[2018-06-19] MEDS: Levothyroxine 150 MCG TAB PO SCH (05:42)
[2018-06-19 06:59] LABS: CALCIUM 9.7 mg/dL (8.4-10.5)
[2018-06-19 07:04] LABS: BASO # 0.03 K/mm3 (0.0-2.0); BASO % 0.5 % (0.0-3.0); EOS # 0.1 (0.0-0.7); EOS % 1.4 % (1.5-5.0); GRAN # 4.48 (1.4-6.5); GRAN % 70.4 % (50.0-68.0); HEMOGLOBIN 9.1 g/dL (14.0-18.0); LYMPH # 1.5 (1.2-3.4); LYMPH % 24.2 % (22.0-35.0); MEAN CORPUSCULAR HEMOGLOBIN 33.1 pg (25.0-35.0); MEAN CORPUSCULAR HGB CONC 31.8 g/dl (31.0-37.0); MEAN PLATELET VOLUME 8.6 fl (7.0-11.0); MONO # 0.2 (0.1-0.6); MONO % 3.5 % (1.0-6.0); RBC 2.75 10^6/uL (3.5-6.1); WHITE BLOOD COUNT 6.4 10^3/uL (4.5-11.0)
[2018-06-19] MEDS ORDERED: Arformoterol 15 mcg/2 ml Inh Sol IH SCH (08:00)
[2018-06-19] MEDS ORDERED: Budesonide 0.5 mg/2 ml Inhal Susp UD IH SCH (08:00)
--- NOTE | 2018-06-19 16:23 | CON ---
DATE: 06/19/2018 PULMONARY CONSULTATION REASON FOR PULMONARY CONSULTATION: Chronic obstructive pulmonary disease. REFERRING PHYSICIAN: Lakhwinder Horne MD SOURCE OF HISTORY: History is obtained via extensive discussion with the nurse. I have also reviewed the chart at length, and discussed the case with the patient at length. HISTORY OF PRESENT ILLNESS: The patient is a 72-year-old male, with past medical history significant for chronic obstructive pulmonary disease, thyroid disease, noncompliance with home medications, who initially presented to [facility] - on 06/06/2018 - with progressive weakness. In the emergency room, the patient was noted to be bradycardic and hypothermic. He was thus admitted for additional evaluation. Again, I did discuss the case with the nurse and the patient at length. Apparently, while on the acute care side, the patient did very well and was transferred to the transitional unit. Pulse oximetry done 2 days ago-- after ambulation--- was noted to be in the 80s. Yesterday, actually, the values were better. I am thus asked to evaluate on this case for additional treatment. There is no history of shortness of breath at rest or dyspnea on exertion. There is a history of chronic cough with occasional sputum production. There is no history of chest pain, coughing up of blood, or chest pain - brought on with deep respirations. There is no history of temperatures, chills or infectious exposure. There is no history of night sweats, weight loss or appetite change prior to the above events. No history of calf pains. No history of syncope or diaphoresis. No history of recent travel or trauma. REVIEW OF SYSTEMS: No history of nausea, vomiting or diarrhea. No acute urinary symptoms. Rest of the review of systems is negative. ALLERGIES: NO KNOWN ALLERGIES. SOCIAL HISTORY: Positive for tobacco and negative for alcohol. FAMILY HISTORY: No inheritable diseases. HOME MEDICATIONS: Include Synthroid, Pepcid. PHYSICAL EXAMINATION: GENERAL: The patient appears comfortable this morning. He is not short of breath at rest. VITAL SIGNS: Temperature is 98.9, pulse 64, respirations 18, blood pressure 131/82. Oxygen saturation on room air is 97%. HEENT: Normocephalic, atraumatic. No JVD. CARDIOVASCULAR: Positive S1, S2. No S3 gallop. LUNGS: Decreased breath sounds at the bases. Very minimal rhonchi. No wheezing. EXTREMITIES: No clubbing, cyanosis or edema. Calves are nontender to palpation. GI: Abdomen is soft, nontender and nondistended. Bowel sounds are positive. SKIN: No acute rash. NEUROLOGIC: Exam limited at the present time. PERTINENT LABORATORY DATA: Chest x-ray was done on 06/18/2018 and reviewed. There are very minimal right lung patchy infiltrates noted. There is also left mid lung scarring. The infiltrates seen on yesterday's film actually appear improved/decreased from the film of 06/10/2018. CBC: White count 5.5K, hemoglobin 8.9, hematocrit 27.5, platelets of 145,000. IMPRESSION: 1. Chronic obstructive pulmonary disease. 2. Oxygen desaturation with exercise. 3. Possible right lung pneumonia. 4. Thyroid disease. 5. Anemia. PLAN: Again, I did discuss the case with the night nurse and the patient at length. I have also reviewed the chart at length. The patient presented to [facility] - originally on 06/06/2018 - with extreme weakness and fatigue. In the emergency room, the patient was noted to be hypothermic and bradycardic. He was thus admitted for additional evaluation. I did review the chest x-ray as above. The chest x-ray actually appears improved from the previous film of 06/10/2018. The patient has been started on intravenous Rocephin. There is no history of temperatures. There is no leukocytosis. On physical exam, there is only minimal bronchospasm noted. In addition, the oxygen saturation on room air is 97%. Again, I did discuss the case with the night nurse at length. Yesterday, after ambulation, the oxygen saturation on room air was 88-90%. We will test these values again this morning. I will discuss the above with Physical Therapy. Due to the chronic symptomatology and above history, I will start the patient on Brovana and Pulmicort nebulizer treatments. He may be transitioned to a metered-dose inhaler upon discharge. Clinical status of the patient appears significantly improved - compared to the initial presentation. Additional pulmonary intervention will be based on the above results, as well as the clinical status of the patient. I will discuss the above with Dr. Horne later this morning. Thank you very much for this pulmonary consultation. Conner Galindo MD [facility] # [id number] [facility]
[2018-06-19 16:39] VITALS: BP 134/76
[2018-06-19 16:50] VITALS: PULSE 62; O2SAT 94
== END 2018-06-19 20:00 | disposition home or self-care (01) | DRG 645 ==
LOC: TRCU 19:22
PROVIDERS: ADMIT Internal Medicine; ATTEND Internal Medicine
PROC: F07Z9FZ Gait Training/Functional Ambulation Treatment using Assistive, Adaptive, Supportive or Protective Equipment (ICD-10-PCS; principal; 2018-06-11)
PROC: F07M6ZZ Therapeutic Exercise Treatment of Musculoskeletal System - Whole Body (ICD-10-PCS; 2018-06-11)
PROC: F08Z1ZZ Dressing Techniques Treatment (ICD-10-PCS; 2018-06-12)
PROC: F08Z0ZZ Bathing/Showering Techniques Treatment (ICD-10-PCS; 2018-06-12)
PROC: F08Z2ZZ Grooming/Personal Hygiene Treatment (ICD-10-PCS; 2018-06-12)
DX: E03.9 Hypothyroidism, unspecified (principal); I10 Essential (primary) hypertension; J44.9 Chronic obstructive pulmonary disease, unspecified; D64.9 Anemia, unspecified; M47.812 Spondylosis without myelopathy or radiculopathy, cervical region; M75.120 Complete rotator cuff tear or rupture of unspecified shoulder, not specified as traumatic; Z79.899 Other long term (current) drug therapy; Z91.14 Patient's other noncompliance with medication regimen; T68.XXXA Hypothermia, initial encounter